=== PATIENT | female | born 1950 | race Caucasian/White ===

== ENCOUNTER → 2020-12-03 11:03 | Outpatient (CLI) | payer OTHER, SELFPAY ==
--- NOTE | ~2020-12-03 | MM_ITS ---
EXAMINATION: MM screening mary BI w enrique HISTORY: Screening TECHNIQUE: Craniocaudal and mediolateral oblique 3-D tomosynthesis images were obtained and synthetic 2-D images were generated. CAD analysis was submitted and interpreted. COMPARISON: Comparison to multiple prior studies sequentially, with oldest reviewed study dated 04/16. BREAST PARENCHYMAL COMPOSITION: The breasts are heterogenously dense, which may obscure small masses FINDINGS: There is no evidence of suspicious mass, calcification, or architectural distortion to sugg est malignancy in either breast. There has been no suspicious interval change. IMPRESSION: 1. No mammographic evidence of malignancy. 2. Recommend routine screening mammography in one year. BI-RADS Category 1: Negative Reviewed, dictated and finalized at location A.
== END ==
PROVIDERS: PCP Family Medicine; Visit Provider Obstetrics & Gynecology Gynecology
DX: Z12.31 Encounter for screening mammogram for malignant neoplasm of breast (principal)
CPT/HCPCS: 77063; 77067

== ENCOUNTER → 2022-03-12 11:18 | Outpatient (CLI) | payer OTHER, SELFPAY ==
--- NOTE | ~2022-03-12 | MM_ITS ---
EXAMINATION: MM screening [facility] BI w enrique HISTORY: Screening mammogram TECHNIQUE: Craniocaudal and mediolateral oblique 3-D tomosynthesis images were obtained and synthetic 2-D images were generated. CAD analysis was submitted and interpreted. COMPARISON: 12/03/2020, 07/19/2018, 07/22/2015 BREAST PARENCHYMAL COMPOSITION: The breasts are heterogeneously dense, which may obscure small masses . FINDINGS: No suspicious mass, calcification, or architectural distortion are identified in either artie ast to suggest malignancy. There has been no suspicious interval change. IMPRESSION: 1. No mammographic evidence of malignancy. 2. Recommend routine screening mammography in one year. BI-RADS Category 1: Negative Reviewed, dictated and finalized at location A.
== END ==
PROVIDERS: PCP Family Medicine; Visit Provider Obstetrics & Gynecology Gynecology
DX: Z12.31 Encounter for screening mammogram for malignant neoplasm of breast (principal)
CPT/HCPCS: 77063; 77067

== ENCOUNTER → 2022-12-15 09:15 | Outpatient (CLI) | payer OTHER, SELFPAY ==
--- NOTE | ~2022-12-15 | MMUS_ITS ---
EXAMINATION: MM diagnostic mary BI w enrique, US breast BI complete HISTORY: Left breast pain. TECHNIQUE: Full field and spot ML, MLO and CC 3-D tomosynthesis images of both breasts were performed and synthetic 2-D images were generated. CAD analysis was submitted and interpreted. High resolution complete bilateral breast ultrasound examination including all 4 quadrants and subareolar areas was performed. COMPARISON: 03/12/2022, 12/03/2020, 07/19/2018 bilateral screening mammogram examinations BREAST PARENCHYMAL COMPOSITION: The breasts are heterogeneously dense, which may obscure small masses . FINDINGS: MAMMOGRAPHIC FINDINGS: Approximately 4.7 x 6 mm possible mass is suggested in the mid to upper inner left breast (MLO Tomosy nthesis image 41/53; coned MLO Tomosynthesis image 35/56). There is fibroglandular asymmetry and heterogeneously dense stroma of the breast, which may obscure a dditional masses on either side. Bilateral complete breast ultrasound examination was performed. ULTRASOUND: Right breast: No suspicious mass or shadowing, cyst or other significant sonographic abnormality is noted in the ri ght breast. Left breast: 12:00 4 cm from nipple: Mildly irregular parallel hypoechoic 5.8 x 4.1 x 6.6 mm lesion. Portions of t he margins are not completely circumscribed. Due to the marginal irregularity and incomplete circumci trisha, ultrasound-guided biopsy is recommended. At 2:00 7 cm from the nipple there is a persistent ill-defined approximately 1.5 cm wide area of shad owing, with some prominent vascularity going to this area. Ultrasound-guided biopsy is recommended. 10:00 5 cm from nipple: There is an irregular hypoechoic 5.3 x 5.0 x 8.9 mm mass with some posterior shadowing. Ultrasound-guided biopsy is recommended. IMPRESSION: 1. Suspicious sonographic findings of left breast at 12:00 4 cm from nipple, 2:00 7 cm from nipple an d 10:00 5 cm from nipple 2. Ultrasound-guided biopsy of each of these 3 areas is recommended BI-RADS category 4, suspicious findings. Dr. Merino telephoned the report and ultrasound-guided biopsy recommendations on 12/15/2022 at 1037 hours to Cynthia, Pantograph I Engraver. Reviewed, dictated and finalized at location A. IMPRESSION: 1. Suspicious sonographic findings of left breast at 12:00 4 cm from nipple, 2: 00 7 cm from nipple and 10:00 5 cm from nipple 2. Ultrasound-guided biopsy of each of these 3 areas is recommended BI-RADS category 4, suspicious findings. Dr. Merino telephoned the report and ultrasound-guided biopsy recommendations on 12/15/2022 at 1037 hours to Timo Marie.
== END ==
PROVIDERS: PCP Family Medicine; Visit Provider Advanced Practice Midwife
DX: N64.4 Mastodynia (principal); R92.8 Other abnormal and inconclusive findings on diagnostic imaging of breast
CPT/HCPCS: 76641; 77062; 77066; G0279

== ENCOUNTER 2023-01-11 09:14 | Outpatient (CLI) | payer OTHER, SELFPAY ==
--- NOTE | ~2023-01-11 | MMUS_ITS ---
EXAMINATION: US breast biopsy LT w image, MM post biopsy invasive LT DATE: 01/11/2023 10:47 (accession [id number]), 01/11/2023 10:45 (accession [id number]) INDICATION: Indeterminate masses at the 12:00 and 10:00 locations of the left breast on screening [facility] mogram. Ultrasound-guided core biopsy is requested to evaluate for malignancy. TECHNIQUE AND FINDINGS: The risks and potential benefits of the procedure were discussed with the patient including bleeding and infection. A time out was performed. An area recommended for biopsy at the 2:00 location appears mammographically stable and is most consistent with dense fibroglandular tissue. The skin of the left breast was prepared and draped in usual sterile fashion. 1% lidocaine was used for superficial anest hesia. 1% lidocaine with epinephrine was used for deep anesthesia. A vacuum-assisted biopsy needle was advanced through to the outer edge of the 10:00 mass from a later al approach utilizing sonographic guidance. A total of five tissue core samples were obtained through the lesion. A tissue marker clip was then placed at the biopsy site. Hemostasis was achieved. A vacuum-assisted biopsy needle was advanced through to the outer edge of the 12:00 mass from a later al approach utilizing sonographic guidance. A total of four tissue core samples were obtained through the lesion. A tissue marker clip was then placed at the biopsy site. Hemostasis was achieved. A ster ile bandage was applied. The patient tolerated procedure well and there was no evidence of immediate complication. The patient was given verbal instructions to return to the Emergency Department in the event of severe breast pa in or rapid breast enlargement. A two view left breast mammogram was obtained to document tissue ankur er clip placement. IMPRESSION: 1. Successful ultrasound-guided vacuum-assisted biopsy of left breast masses with tissue marker place ment. Reviewed, dictated and finalized at location A. IMPRESSION: 1. Successful ultrasound-guided vacuum-assisted biopsy of left breast masses wi th tissue marker placement.
== END 2023-01-11 09:15 | disposition home or self-care (01) ==
PROVIDERS: PCP Family Medicine; Visit Provider Physician Assistant Surgical
DX: R92.8 Other abnormal and inconclusive findings on diagnostic imaging of breast (principal); N63.20 Unspecified lump in the left breast, unspecified quadrant
CPT/HCPCS: 19083; 88305; A4648

== ENCOUNTER 2024-07-06 12:40 | Outpatient (CLI) | payer MEDICARE, SELFPAY ==
--- NOTE | ~2024-07-06 | MM_ITS ---
EXAMINATION: MM screening mary BI w enrique HISTORY: Screening TECHNIQUE: Craniocaudal and mediolateral oblique 3-D tomosynthesis images were obtained and synthetic 2-D images were generated. CAD analysis was submitted and interpreted. COMPARISON: Comparison to multiple prior studies sequentially, with oldest reviewed study dated 11/2015. BREAST PARENCHYMAL COMPOSITION: Dense: The breasts are extremely dense, which lowers the sensitivity of mammography. FINDINGS: There is no evidence of suspicious mass, calcification, or architectural distortion to sugg est malignancy in either breast. There has been no suspicious interval change. IMPRESSION: 1. No mammographic evidence of malignancy. 2. Recommend routine screening mammography in one year. BI-RADS Category 1: Negative Reviewed, dictated and finalized at location B. NERATOR ATTENDANT
--- NOTE | ~2024-07-06 | DEXA_ITS ---
Bone Density Report Name: MARCELLA ALMENDAREZ Age: 73 Sex: Female Ethnicity: White Date of : 1950 Indication: postmenopausal; screening for osteoporosis; height loss; prior fracture; Referring Provider: Rola Fuentes Study: Bone densitometry was performed. Exam Date: July 06, 2024 Accession number: [id number] Bone Density: Region BMD T-score Z-score Classification AP Spine(L1-L4) 0.792 -2.3 0.0 Osteopenia Femoral Neck (Left) 0.755 -0.8 1.1 Normal Total Hip (Left) 0.939 0.0 1.6 Normal Femoral Neck (Right) 0.778 -0.6 1.3 Normal Total Hip (Right) 0.871 -0.6 1.1 Normal Femoral Neck Mean 0.767 -0.7 1.2 Normal Total Hip Mean 0.905 -0.3 1.4 Normal World Health Organization criteria for BMD impression classify patients as: Normal (T-score at or above -1.0), Osteopenia (T-score between -1.0 and -2.5), or Osteoporosis (T-score at or below -2.5). 10-year Fracture Risk: FRAX not reported because: Prior hip or vertebral fracture Clinical Information Provided by Patient: Have had a previous hip or vertebral fracture Has had a low trauma fracture Has used the following medications: Vitamin D Patient maximum height was 63 Menopause Age: 46 No regular weight bearing exercise Onset of menses at age 13 Number of children 2 Impression: The patient has low bone mass, based on the Total Spine T-score. The patient has risk factors, including: previous fracture. Discussion: INCREASED RISK OF FRACTURE DUE TO HISTORY OF FRACTURE. The patient's previous fracture puts the patient at high risk of a future fracture. In untreated patients, the risk of osteoporotic fracture increases approximately two-fold for each 1.0 SD decrease in T-score. Low bone density is not the only risk factor for fracture; also consider factors such as patient's age, frailty or poor health, risk of falling, risk of injury, previous osteoporotic fracture, family history of osteoporosis, cigarette smoking, low body weight, etc. Not everyone with a low trauma fracture has osteoporosis; osteomalacia and other metabolic bone disorders should also be considered. Patients who have osteoporosis should be evaluated for specific diseases and conditions (secondary causes) that may cause or contribute to bone loss and fracture risk. National Osteoporosis Foundation (NOF) recommends pharmacologic intervention for patients with a prior hip or vertebral fracture regardless of BMD T-score. The patient should follow a healthful lifestyle (good nutrition with adequate calcium and vitamin D, and appropriate weight-bearing exercise). Follow-Up: Consider a repeat BMD and Vertebral Fracture Assessment (VFA) exam in 2 years or sooner if medically necessary, to reassess this patient's status. Reported by: JONAH on 07/06/2024 1:09:00 PM. Reviewed, dictated and finalized at location A.
--- OUTSIDE RECORDS SUMMARY | 2024-07-06 12:47 | XMS_ITS | Clinical Summary ---
Author Organization [facility] Address [address] [place] [address] Phone Care Team Providers Care Training Associate Name Role Phone Unavailable Primary Care Provider Unavailabl e Social History Tobacco Use Types Packs/Day Years Used Date Smoking Tobacco: Never Assessed Comments Unknown Sex and Gender Information Value Date Recorded Sex Assigned at Not on file Legal Sex Female 1:12 PM LICENSE EXAMINER Gender Identity Not on file Sexual Orientation Not on file Plan of Treatment Health Maintenance Due Date Last Done Comments DEXA Bone Density 1950 Hepatitis C Virus (HCV) Screening 1950 Colonoscopy 07/15/1996 Colorectal Cancer Screening 07/15/1996 Cologuard 07/15/2001 Immunochemical Fecal Occult Blood 07/15/2001 Mammogram 07/15/2001 Zoster Immunization (2 of 2) 10/27/2018 09/01/2018 Pneumococcal Immunization (50+ years) (2 of 2 - PPSV23) 01/15/2021 01/16/2020 Influenza Immunization (#1) 2024 06/07/2013 SARS-COV-2 Immunization ( season) 2024 12/08/2021, 03/24/2021, 08/05/2020, Additional history exists Respiratory Syncytial Virus (RSV) Immunization (Adult) (1 - 1-dose 75+ series) 07/15/2026 DTaP/Tdap/Td Immunization Discontinued 12/08/2015 TdaP Immunization Completed 12/08/2015 Pneumococcal Immunization Combined Discontinued 01/16/2020 Hepatitis B Immunization Aged Out No longer eligible based on patient's age to complete this topic Meningococcal Immunization (ACWY) Aged Out No longer eligible based on patient's age to complete this topic Rotavirus Immunization Aged Out No lo nger eligible based on patient's age to complete this topic
--- OUTSIDE RECORDS SUMMARY | 2024-07-06 12:47 | XMS_ITS | Clinical Summary ---
Author Organization [facility] Address [address] [place] [id number] Care Team Providers Care Double End Tenoner Operator Name Role Phone Unavailable Primary Care Provider Unavailabl e Social History Tobacco Use Types Packs/Day Years Used Date Smoking Tobacco: Never Assessed Comments Unknown Sex and Gender Information Value Date Recorded Sex Assigned at Not on file Legal Sex Female 6:23 PM CDT Gender Identity Not on file Sexual Orientation Not on file Last Filed Vital Signs Vital Sign Reading Time Taken Comments Blood Pressure 110/78 12/31/2016 2:07 PM CDT Pulse 77 12/31/2016 2:07 PM CDT Temperature - - Respiratory Rate - - Oxygen Saturation - - Inhaled Oxygen Concentration - - Weight 57.2 kg (126 lb) 12/31/2016 2:07 PM CDT Height 160 cm (5' 3 ) 12/31/2016 2:07 PM CDT Body Mass Index 22.32 12/31/2016 2:07 PM CDT Plan of Treatment Health Maintenance Due Date Last Done Comments Colorectal Cancer Screening Colonoscopy (10 Years) 1950 Hepatitis C 07/15/1969 DTaP, Tdap and Td Vaccines ( 1 - Tdap) 07/15/1970 Mammogram Screening 1991 Zoster Vaccines (1 of 2) 07/15/2001 Dexa Scan (General) 07/15/2016 Pneumococcal Vaccine: 65+ Ye ars (1 of 1 - PCV) 07/15/2016 COVID-19 Vaccine ( - 2023-2 5 season) 2024 Influenza Adult (#1) 2024 RSV Immunization or 60+ Years (1 - 1-dose 75+ series) 07/15/2026 Meningococcal B Vaccine Aged Out No l onger eligible based on patient's age to complete this topic Meningococcal Vaccine Aged Out No analisa ric eligible based on patient's age to complete this topic RSV Immunizations Under 20 Months Aged Out No longer eligible based on patient's age to complete this topic
--- OUTSIDE RECORDS SUMMARY | 2024-07-06 12:47 | XMS_ITS | Clinical Summary ---
Author Organization [facility] Address [address] [place] [address] Care Team Providers Care Vacuum Tank Tender Name Role Phone Mike Briceno MD Primary Care Provider Source Comments [facility],non-owned Affiliates and Associated Physician Practices is amultiple site organization consisting of ambulatory clinics and hospital sitesin [place], [place], [place] and [place]. This disclosure is being madepursuant to the Care Everywhere program and may not contain all information available regarding this patient. Last updated 18.[facility] Allergies No known active allergies Medications * Be aware that medications may not be up to date on this document. Alwaysverify current medications with the patient. Medication Sig Dispensed Refills Start Date End Date Status Cholecalciferol 25 MCG (1000 UT) Take 2,000 Units by mouth once daily Active Active Problems Problem Noted Date Diagnosed Date Closed Colles' fracture 11/04/2020 Fracture of forearm 11/04/2020 Neck pain 11/04/2020 Closed fracture of middle phalanx of finger 10/16 Elevated blood pressure reading 08/19/2018 Overview (11/04/2020): Last Assessment & Plan: Will have patient monitor BP at home and add medication as needed - Will check lipid panel, CMP for primary risk stratification Abnormal stress electrocardiogram test using christy admill 08/18/2018 Overview (11/04/2020): August 2007 positive the ECG evidence but was negative perfusion. Excellent exercise capacity at 13 METS. Short ID with increased heart rate Dizziness 08/13/2018 Overview (11/04/2020): Last Assessment & Plan: Seem to not be related to palpitations - Will have patient monitor BP at home - Event monitor as above Mild mitral regurgitation 08/13/2018 Overview (11/04/2020): Noted echo May 2016.. Eccentric jet perhaps underestimated Last Assessment & Plan: Noted on TTE from 05/2016 - Continue to monitor - Recheck TTE in 5 years or sooner if clinically indicated Allergic rhinitis 05/19/2018 Lumbago 05/19/2018 Vitamin D deficiency 05/19/2018 Palpitations 04/29/2016 Overview (11/04/2020): Echo May 20, 2016 mild concentric LVH. Normal systolic and diastolic function. Mild mitral regurgitation w which is eccentric. Gives history of heart rate in the 200's Last Assessment & Plan: TTE from 05/20/16 with normal LVH function and mild MR. Has symptoms daily but they are mild - Will check 30 day even monitor - Can continue to hold beta maira unless arrhythmia noted during monitoring - Check TSH and Magnesium Cervical radiculopathy 08/28/2014 Compression fracture of cervical spine 4 Immunizations Name Administration Dates Next Due FLU VACCINE QUAD IIV4 SPLIT 0.25 ML IM 4 Pneumococcal Pcv13 Conj 01/16/2020 TDAP (7yrs+) 12/08/2015 Zoster Hzv Vacc Recombinant Inj Im 12/14/2018, Family History Medical History Relation Name Comments CVA Father Hyperlipidemia Mother Parkinson's Disease Mother Relation Name Status Comments Father Mother Social History Tobacco Use Types Packs/Day Years Used Date Smoking Tobacco: Never Smokeless Tobacco: Never Alcohol Use Standard Drinks/Week Comments Yes 0 (1 standard drink = 0.6 oz pur e alcohol) AUDIT-C Answer Date Recorded Frequency of Alcohol Consumption Not on file 06/27/2020 Q2: How many drinks containi ng alcohol do you have on a typical day when you are drinking? 3 or 4 06/27/2020 Q3: How often do you have si x or more drinks on one occasion? Weekly 06/27/2020 Sex and Gender Information Value Date Recorded Sex Assigned at Not on file Gender Identity Not on file Sexual Orientation Not on file Last Filed Vital Signs Vital Sign Reading Time Taken Comments Blood Pressure 122/73 06/27/2020 8:05 AM SEAFOOD PROCESSOR Pulse 75 06/27/2020 8:05 AM SEAFOOD PROCESSOR Temperature 36.6 C (97.9 F) 06/27/2020 8:05 AM SEAFOOD PROCESSOR Respiratory Rate - - Oxygen Saturation - - Inhaled Oxygen Concentration - - Weight 57.6 kg (127 lb) 06/27/2020 8:05 AM SEAFOOD PROCESSOR Height 160 cm (5' 3 ) 06/27/2020 8:05 AM SEAFOOD PROCESSOR Body Mass Index 22.5 06/27/2020 8:05 AM SEAFOOD PROCESSOR Plan of Treatment Health Maintenance Due Date Last Done Comments BONE DENSITY TESTING 1950 COLOGUARD (AGES 45-75) - COL ON CA SCREENING 1950 COLON MONITORING 1950 COLONOSCOPY - COLON CA SCREENING 1950 CT COLONOGRAPHY - COLON CA SCREENING 1950 Colorectal Cancer Screening 1950 FIT - COLON CA SCREENING 1950 FLEX SIG - COLON CA SCREENING 1950 LIPID TESTING 1950 MAMMOGRAM 1950 HEPATITIS C SCREENING 07/11/1969 PNEUMOCOCCAL VACCINE 50+ (2 of 2 - PPSV23) 01/15/2021 01/16/2020 COVID-19 VACCINE ( - 2023-2 5 season) 2024 INFLUENZA VACCINE (#1) 2024 06/07/2013 DEPRESSION SCREENING 05/17/2024 MEDICARE AWV CALENDAR YEAR 2024 DTAP/TDAP/TD VACCINES (2 - T d or Tdap) 12/07/2025 12/08/2015 Respiratory Syncytial Virus (RSV) Vaccine Pt: or over 60 yrs (1 - 1-dose 75+ series) 07/15/2026 ZOSTER VACCINE Completed 12/14/2018, 09/01/2018 HEPATITIS B VACCINE Aged Out No longe r eligible based on patient's age to complete this topic HIB VACCINE Aged Out No longer eligi ble based on patient's age to complete this topic HPV VACCINE Aged Out No longer eligi ble based on patient's age to complete this topic MENINGOCOCCAL (Group B) VACCINE Aged Out No longer eligible b ased on patient's age to complete this topic MENINGOCOCCAL VACCINE Aged Out No analisa ric eligible based on patient's age to complete this topic Care Teams Vacuum Tank Tender Relationship Specialty Start Date End Date Mike Briceno MD PCP - General Family Medicine 06/27/20
--- OUTSIDE RECORDS SUMMARY | 2024-07-06 12:47 | XMS_ITS | Patient Health Summary ---
Author Organization [facility] Address [address] [place] [address] Care Team Providers Care Sterile Process Coordinator Name Role Phone Mike Briceno MD Primary Care Provider Note from [facility],non-owned Affiliates and Associated Physician Practices is amultiple site organization consisting of ambulatory clinics and hospital sitesin [place], [place], [place] and [place]. This disclosure is being madepursuant to the Care Everywhere program and may not contain all information available regarding this patient. Last updated 18.[facility] Allergies No known active allergies Medications * Be aware that medications may not be up to date on this document. Alwaysverify current medications with the patient. * Cholecalciferol 25 MCG (1000 UT) Take 2,000 Units by mouth once daily Active Problems Problem Noted Date Diagnosed Date Closed Colles' fracture 11/04/2020 Fracture of forearm 11/04/2020 Neck pain 11/04/2020 Closed fracture of middle phalanx of finger 10/16 Elevated blood pressure reading 08/19/2018 Abnormal stress electrocardiogram test using christy admill 08/18/2018 Dizziness 08/13/2018 Mild mitral regurgitation 08/13/2018 Allergic rhinitis 05/19/2018 Lumbago 05/19/2018 Vitamin D deficiency 05/19/2018 Palpitations 04/29/2016 Cervical radiculopathy 08/28/2014 Compression fracture of cervical spine 4 Immunizations * FLU VACCINE QUAD IIV4 SPLIT 0.25 ML IM(Given 06/07/2013) * Pneumococcal Pcv13 Conj(Given 01/16/2020) * TDAP (7yrs+)(Given 12/08/2015) * Zoster Hzv Vacc Recombinant Inj Im(Given 12/14/2018, 09/01/2018) Social History Tobacco Use Types Packs/Day Years [...] Comments Blood Pressure 122/73 06/27/2020 8:05 AM LEASING SALES CONSULTANT Pulse 75 06/27/2020 8:05 AM LEASING SALES CONSULTANT Temperature 36.6 C (97.9 F) 06/27/2020 8:05 AM LEASING SALES CONSULTANT Respiratory Rate - - Oxygen Saturation - - Inhaled Oxygen Concentration - - Weight 57.6 kg (127 lb) 06/27/2020 8:05 AM LEASING SALES CONSULTANT Height 160 cm (5' 3 ) 06/27/2020 8:05 AM LEASING SALES CONSULTANT Body Mass Index 22.5 06/27/2020 8:05 AM LEASING SALES CONSULTANT Procedures * DERMATOPATHOLOGY(Performed 09/30/2022) * DERMATOPATHOLOGY(Performed 07/23/2017) * DERMATOPATHOLOGY(Performed 11/20/2015) * DERMATOPATHOLOGY(Performed 09/09/2015) Results * DERMATOPATHOLOGY (09/30/2022 8:30 AM CDT) Only the most recent of4 resultswithin the time period is included. Case Report Dermatopathology Report Case: [id number] Authorizing Provider: Crystal Momin MD Collected: 09/30/2022 08:30 AM Ordering Location: [facility] DermPath Lab Received: 10/01/2022 06:08 AM Pathologist: Sheridan Pardo MD Specimens: A) - Skin, left sideburn B) - Skin, right restoration 3 4:41 PM T DERMATOPATHOLOGY LABORATORY Final Diagnosis Specimen A. SKIN, left sideburn: SEBORRHEIC KERATOSIS, IRRITATED; SUPERFICIAL PORTIONS ONLY (L82.0) Specimen B. SKIN, right restoration: SQUAMOUS CELL CARCINOMA IN SITU (TEJADA'S DISEASE) (D04.39) 3 4:41 PM T DERMATOPATHOLOGY LABORATORY Clinical History A: AK VS SCC VS OTHER ;GROWING, IRRITATED, NON-HEALING B: SK VS SCC VS OTHER; GROWING, IRRITATED, NON-HEALING 3 4:41 PM CDT DERMATOPATHOLOGY LABORATORY Gross Description Specimen A: Received is one formalin filled container labeled with the patient's name and designated left sideburn. The specimen consists of a shave biopsy measuring 5x4x1 mm. Jar 0. Specimen B: Received is one formalin filled container labeled with the patient's name and designated right restoration. The specimen consists of a shave biopsy measuring 6x5x1 mm. Jar 0. 3 4:41 PM T DERMATOPATHOLOGY LABORATORY Microscopic Description Specimen A. SKIN, left sideburn: There is acanthosis consisting of fairly uniform squamous cells with eosinophilic cytoplasm and squamous eddies. Specimen B. SKIN, right restoration: The epidermis shows parakeratosis, full thickness disorderly maturation of keratinocytes, mitoses at different levels, and dyskeratotic cells. 3 4:41 PM [facility] DERMATOPATHOLOGY LABORATORY Disclaimer An external and internal positive and negative controls are appropriate for the histochemical, immunohistochemical and immunofluorescence stain(s) in this case (if any), except where stated explicitly. The performance characteristics of the stain(s) cited in this report were developed and its performance characteristic determined by the Dermatopathology Laboratory at [facility], directed by Dr. Zak Pardo. These tests need not be, and therefore are not, approved by the [place] Food and Drug Administration. The tests are used for clinical purposes. Billing Codes Specimen Charges Stain Charges 04008 07335 1 1 3 4:41 PM CDT DERMATOPATHOLOGY LABORATORY Embedded Images 3 4:41 PM CDT DERMATOPATHOLOGY LABORATORY Pathology/Cytology TISSUE SPECIMEN FROM SKIN / Unknown 09/30/2022 8:30 AM CDT 10/01/2022 6:08 AM CDT Miscellaneous samples (specimen) TISSUE SPECIMEN FROM SKIN / Unknown 09/30/2022 8:30 AM CDT 10/01/2022 6:08 AM CDT Crystal Momin MD LAB - PATHOLOGY/CYT OLOGY ORDERABLES DERMATOPATHOLOGY LABORATORY [facility] - Department of Dermatology [facility] Specialized Medicine [address] [place] [address], [address] [phone] Care Teams Sterile Process Coordinator Relationship Specialty Start Date End Date Mike Briceno MD PCP - General Family Medicine 06/27/20
--- OUTSIDE RECORDS SUMMARY | 2024-07-06 12:47 | XMS_ITS | Encounter Summary ---
Author Organization [facility] Address [address] [place] [address] Care Team Providers Care Roll Line Operator Name Role Phone Gavin Sanchez MD Primary Care Provider [phone]- [phone] Mike Briceno MD Unavailable [phone]- [phone] Reason for Visit * Diagnostic Imaging (Routine) - Closed Specialty Diagnoses / Procedures Referred By Contac t Referred To Contact Procedures Breast Imaging Screening Outside Reference Mike Briceno MD [address] [place] [address] Phone: tel: fax: Referral ID Status Reason Start Date Expiration Date Visits Re quested Visits Authorized [id number] Closed 12/18/2022 01/17/2024 1 1 Encounter Details Date Type Department Care Team (Late st Contact Info) Description 07/19/2018 Hospital Encounter [facility] [address] [place] [id number] Social History Tobacco Use Types Packs/Day Years Used Date Smoking Tobacco: Never Smokeless Tobacco: Never Alcohol Use Standard Drinks/Week Comments Yes 4 (1 standard drink = 0.6 oz pur e alcohol) AUDIT-C Answer Date Recorded Q1: How often do you have a drink containing alc ohol? 2-3 times a week 04/24/2024 Q2: How many drinks containi ng alcohol do you have on a typical day when you are drinking? 1 or 2 04/24/2024 Q3: How often do you have si x or more drinks on one occasion? Never 04/24/2024 PHQ-2 Answer Date Recorded PHQ-2 Total Score (If total score is 3 or more points, staff should administer the PHQ-9) 0 04/24/2024 Personal Safety Answer Date Recorded Have you ever been in or are you currently in a harmful physical or emotional relationship or is someone making you feel afraid or unsafe? Denies 05/02/2024 Comments No Sex and Gender Information Value Date Recorded Sex Assigned at Not on file Legal Sex Female 11:20 AM [employer] Gender Identity Not on file Sexual Orientation Not on file COVID-19 Exposure Response Date Recorded In the last month, have you been in contact with someone who was confirmed or suspected to have Coronavirus / COVID-19? No / Unsure 08/09/2019 9:30 AM CDT documented as of this encounter Functional Status * Audit-C Score Answer Date of Assessment Author 3 04/24/2024 8:22 AM [employer] Chantel Rooney MA * Question Answer Date of Assessment Author Q1: How often do you have a drink containing alcohol? 2-3 times a week 04/24/2024 8:22 AM Yamini Marcial M A Q2: How many drinks containing alcohol do you have on a typical day when you are drinking? 1 or 2 04/24/2024 8:22 AM Yamini Marcial M A Q3: How often do you have six or more drinks on one occasion? Never 04/24/2024 8:22 AM Yamini Marcial M A documented as of this encounter Plan of Treatment Not on file documented as of this encounter Procedures Procedure Name Priority Date/Time Associated Diagnosis Comments BREAST IMAGING MG SCREENING OUTSIDE REFERENCE Routine 07/19/2018 12:00 AM [employer] documented in this encounter Results * Breast Imaging Screening Outside Reference (07/19/2018 12:00 AM [employer]) Impressions RAD_M[facility]MO[facility] - 12/18/2022 10:50 AM CDT These images are for Reference purposes only and have not been reviewed by [facility] Radiology. There will be no report generated by a [facility] Radiologist. Narrative RAD_MAMMO_[facility] - 12/18/2022 10:50 AM CDT EXAMINATION: Images For Reference Purposes Only us Mike Briceno MD IMG MAMMO PROCEDURES Final Result [facility] documented in this encounter Visit Diagnoses Not on filedocumented in this encounter Additional Health Concerns Infection Onset Date Last Indicated Resolved Time COVID: Suspected 04/18/2022 04/18/2022 04/18/2022 2:45 PM [employer] documented as of this encounter Care Teams Roll Line Operator Relationship Specialty Start Date End Date Gavin Sanchez MD [address] [place] [address] PCP - General 04/29/16 08/18/18 Mike Briceno MD [address] [place] [address] PCP - Essence Attributed PCP 05/17/18 documented as of this encounter
--- OUTSIDE RECORDS SUMMARY | 2024-07-06 12:47 | XMS_ITS | Clinical Summary ---
Author Organization [facility] Address [facility] [place] [address] Care Team Providers Care Cosmetic Account Coordinator Name Role Phone Mike Briceno MD Primary Care Provid er Mike Briceno MD Unavailable [phone]- [phone] Allergies No known active allergies Medications cholecalciferol (VITAMIN D-3) 25 mcg (1,000 unit) tablet Take 2 tablets (2,000 Units total) by mouth daily Active meclizine (ANTIVERT) 25 mg tablet Take 1 tablet (25 mg total) by mouth 3 (three) times a day as needed for dizziness 30 tablet Active Additional Information Patient not taking.Reported on 06/27/2024 ondansetron ODT (ZOFRAN-ODT) 4 mg disintegrating tablet Take 1 tablet (4 mg total) by mouth every 8 (eight) hours as needed for nausea or vomiting 20 tablet Active Additional Information Patient not taking.Reported on 06/27/2024 atorvastatin (LIPITOR) 10 mg tabletIndications :Hyperlipidemia, unspecified hyperlipidemia type TAKE 1 TABLET BY MOUTH EVERY DAY 90 tablet 3 025 Active metoprolol XL (TOPROL-XL) 25 mg extended release tablet TAKE 1/2 TABLET BY MOUTH EVERY DAY 45 tablet 3 025 Active atorvastatin (LIPITOR) 10 mg tabletIndications :Hyperlipidemia, unspecified hyperlipidemia type Take 1 tablet (10 mg total) by mouth daily 90 tablet 3 024 2024 Discontinued metoprolol XL (TOPROL-XL) 25 mg extended release tablet Take 0.5 tablets (12.5 mg total) by mouth daily 45 tablet 3 024 2024 Discontinued Active Problems Problem Noted Date Diagnosed Date Tinnitus of both ears 06/27/2024 Sensorineural hearing loss (SNHL) of both ears 0 06/27/2024 HTN (hypertension), benign 01/30/2024 Elevated blood pressure reading 08/19/2018 Assessment & Plan (08/19/2018 8:59 AM CDT): Will have patient monitor BP at home and add medication as needed - Will check lipid panel, CMP for primary risk stratification Abnormal stress electrocardiogram test using christy admill 08/18/2018 Overview (08/18/2018): August 2007 positive the ECG evidence but was negative perfusion. Excellent exercise capacity at 13 METS. Short ME with increased heart rate Vertigo 08/13/2018 Assessment & Plan (01/05/2024 10:59 AM CDT): H/o vertigo with new onset dizzy episodes in the past 5 days. COVID about 3 weeks ago, symptoms resolved. Mild sinus inflammation and small amount of fluid behind left TM - could be contributing to dizziness. No red flag symptoms - discussed more concerning symptoms and when to seek emergency care including stroke like symptoms, severe headache, visual changes/loss, etc. Patient still has medrol dose pack at home that she did not take. Advised to try now for anti-inflammatory effect, continue nasal spray as well. F/u if still not improving in the next few days or if more concerning symptoms arise - would consider imaging of brain then. Pt voiced understanding. Assessment & Plan (08/19/2018 8:59 AM CDT): Seem to not be related to palpitations - Will have patient monitor BP at home - Event monitor as above Mild mitral regurgitation 08/13/2018 Overview (08/13/2018): Noted echo May 2016.. Eccentric jet perhaps underestimated Assessment & Plan (08/19/2018 8:58 AM CDT): Noted on TTE from 05/2016 - Continue to monitor - Recheck TTE in 5 years or sooner if clinically indicated Allergic rhinitis 05/19/2018 Lumbago 05/19/2018 Vitamin D deficiency 05/19/2018 Palpitations 04/29/2016 Overview (08/13/2018): Echo May 20, 2016 mild concentric LVH. Normal systolic and diastolic function. Mild mitral regurgitation w which is eccentric. Gives history of heart rate in the 200's Assessment & Plan (08/19/2018 8:59 AM CDT): TTE from 05/20/16 with normal LVH function and mild MR. Has symptoms daily but they are mild - Will check 30 day even monitor - Can continue to hold beta maira unless arrhythmia noted during monitoring - Check TSH and Magnesium Cervical radiculopathy 08/28/2014 Compression fracture of cervical spine ([facility]/HCC) 08/28/2014 Fracture of cervical vertebra ([facility]) 05/16/20 14 Encounters Date Type Department Care Team Description 06/27/2024 9:00 AM PROTECTION OFFICER Office Visit [facility] Otolaryngology [address] [place] [phone] Roula Durbin NP Vertigo (Primary Dx); Sensorineural hearing loss (SNHL) of both ears; Tinnitus of both ears 06/27/2024 8:30 AM PROTECTION OFFICER Procedure visit [facility] Otolaryngology [address] [place] [phone] Graciela Morelos Dizziness and giddiness (Primary Dx); Tinnitus of both ears 06/06/2024 Telephone [facility] Family Medicine [address] [address] Mike Briceno MD Recommendation Request 05/16/2024 7:36 AM PROTECTION OFFICER - 05/16/2024 11:59 PM PROTECTION OFFICER Hospital Encounter [facility] Vascular Lab [facility] [place] [address] Dizziness Discharge Disposition: Discharge to home or self care 05/05/2024 10:00 AM PROTECTION OFFICER Office Visit [facility] [address] [address] Mike Briceno MD Dizziness (Primary Dx) 05/03/2024 [facility] Outreach [facility] Care Organization [address] [place] [address] Katt Alonso MA 05/02/2024 2:39 PM PROTECTION OFFICER - 05/02/2024 5:38 PM PROTECTION OFFICER Emergency [facility] Emergency Department [address] [place] [address] Vertigo (Primary Dx) Discharge Disposition: Discharge to home or self care 05/02/2024 11:15 AM PROTECTION OFFICER Office Visit [facility] Care at [address] [phone] Lori Bartlett PA Dizziness (Primary Dx) 05/02/2024 Nurse Triage [address] [address] Mike Briceno MD 04/24/2024 8:00 AM PROTECTION OFFICER Office Visit [address] [phone] Mike Briceno MD Screening mammogram for breast cancer (Primary Dx); Screening for osteoporosis; Menopause from Last 3 Months Immunizations Immunization Administration Dates Next Due Influenza, Quadrivalent, Spl it, Intramuscular 06/07/2013 Influenza, Unspecified 04/24/2024(Deferr ed: Patient Refused),05/03/2023(Deferred: Patient Refused),02/14/2023(Deferred: Patient Refused),02/14/2022(Deferred: Patient Refused),10/16/2021(Deferred: Patient Refused),02/14/2021(Deferred: Patient Refused),02/14/2021(Deferred: Patient Refused),02/23/2020(Deferred: Patient Refused),02/15/2020(Deferred: Patient Refused) Moderna SARS-CoV-2 Monovalen t Vaccination (12+ YRS) 12/08/2021,03/24/2021,08/05/2020,07/04 Pneumococcal Conjugate PCV 13 01/16/2020 Pneumococcal Conjugate Pcv20 11/05/2021 Tdap 12/08/2015 ZOSTER Recombinant 12/14/2018,09/01/2018 Surgical History Surgery Date Site/Laterality Comments ABLATION Medical History Medical History Date Comments Headache Lumbago Vitamin D deficiency Allergic rhinitis Dizziness Tinnitus Family History Medical History Relation Name Comments Other Brother 2 Alive and well; Stroke Father Delio Stroke; Other Mother Alive and well; Parkinsonism Mother Parkinson's dis ease; Other Sister 2 Alive and well; Relation Name Status Comments Brother 1 Alive Brother 2 Father Delio (Age 89) Mother Alive Sister 1 Alive Sister 2 Social History Tobacco Use Types Packs/Day Years Used Date Smoking Tobacco: Never Smokeless Tobacco: Never Tobacco Cessation:Counseling Given: Not Answered Alcohol Use Standard Drinks/Week Comments Yes 4 [...] on file Legal Sex Female 11:20 AM PROTECTION OFFICER Gender Identity Not on file Sexual Orientation Not on file Obstetrics History Last Filed Vital Signs Vital Sign Reading Time Taken Comments Blood Pressure 132/80 05/05/2024 10:04 AM PROTECTION OFFICER Pulse 74 05/05/2024 10:04 AM PROTECTION OFFICER Temperature 36.7 C (98.1 F) 05/05/2024 10:04 AM PROTECTION OFFICER Respiratory Rate 18 06/27/2024 9:12 AM PROTECTION OFFICER Oxygen Saturation 99% 05/05/2024 10:04 AM PROTECTION OFFICER Inhaled Oxygen Concentration - - Weight 57.2 kg (126 lb) 06/27/2024 9:12 AM PROTECTION OFFICER Height 160 cm (5' 3 ) 06/27/2024 9:12 AM PROTECTION OFFICER Body Mass Index 22.32 06/27/2024 9:12 AM PROTECTION OFFICER Plan of Treatment Health Maintenance Due Date Last Done Comments Hepatitis C Screening 1950 Hepatitis B Screening 07/15/1969 Osteoporosis Screening-Bone Density Scan 03/20/2021 03/20/2019, 03/20/2019 Breast Cancer Screening-Mammogram 12/16/2023 12/15/2022, 03/12/2022, 12/03/2020, Additional history exists Covid-19 Vaccine (2023-06 5 season) 2024 05/22/2022, 12/08/2021, 03/24/2021, Additional history exists Influenza Vaccine (#1) 2024 06/07/2013 Colon Cancer Screening-DNA Stool 09/08/2024 09/09/19, 01/23/2005 Depression Screening 04/24/2025 04/24/2024, 04/24/2024, 01/05/2024, Additional history exists Fall Risk Assessment 04/24/2025 04/24/2024, 05/03/2023, 04/30/2022, Additional history exists Well Visit 65+ 04/24/2025 04/24/2024, 04/16, 05/03/2023, Additional history exists DTaP/Tdap/Td Vaccine (2 - Td or Tdap) 12/07/2025 12/08/2015 Colon Cancer Screening-CT Colonography Discontinued 01/23/2005 Colon Cancer Screening-Colonoscopy Discontinued 01/23/2005 Colon Cancer Screening-Sigmoidoscopy Discontinued 01/23/2005 Zoster Vaccine Completed 12/14/2018, 09/01/2018 Colon Cancer Screening-FIT Discontinued 09/08/2021, Pneumococcal vaccine 65+ Completed 11/05/2021, 05/2019 Procedures Procedure Name Priority Date/Time Associated Diagnosis Comments US CAROTIDS DUPLEX BILATERAL Schedule Routine, Read Routine (OP Routine) 05/16/2024 8:33 AM PROTECTION OFFICER Dizziness TROPONIN T HIGH-SENSITIVITY 2-HOUR Timed 05/02/2024 3:10 PM PROTECTION OFFICER ECG 12-LEAD STAT 05/02/2024 3:03 PM PROTECTION OFFICER TROPONIN T HIGH-SENSITIVITY SERIES (BASELINE, 2HR, 4HR, 6HR) STAT 05/02/2024 1:11 PM PROTECTION OFFICER EGFR STAT 05/02/2024 1:11 PM PROTECTION OFFICER DIFFERENTIAL AUTO STAT 05/02/2024 1:1 1 PM PROTECTION OFFICER LIPASE STAT 05/02/2024 1:11 PM PROTECTION OFFICER COMPREHENSIVE METABOLIC PANEL STAT 05/02/2024 1:11 PM PROTECTION OFFICER CBC WITH AUTO DIFFERENTIAL STAT 05/02/2024 1:11 PM PROTECTION OFFICER URINALYSIS AND REFLEX TO MICROSCOPIC AND CULTURE STAT 05/02/2024 1:11 PM PROTECTION OFFICER HM MAMMOGRAPHY Routine 12/15/2022 STOOL DNA COLOGUARD Routine 09/08/2021 DEXA AXIAL SKELETON BONE DENSITY 1 OR MORE SITES Schedule Routine, Read Routine (OP Routine) 03/20/2019 COLONOSCOPY Routine 01/23/2005 from Last 3 Months or Most Recently Relevant to Health Maintenance Results * Vl US Carotids (05/16/2024 8:33 AM PROTECTION OFFICER) Anatomical Region Laterality Modality Vascular Bilateral Ultrasound 05/16/2024 Narrative 05/19/2024 7:16 AM PROTECTION OFFICER APX Job ID: [id number] APX Document ID: [id number] Dictated date/time: [id number] BILATERAL CAROTID DUPLEX REASON FOR EXAM Dizziness. FINDINGS ON THE RIGHT The right CCA peak systolic velocity is 84 cm/sec. Right ICA velocities are 70, 83 and 120. ECA is 81. The right vertebral has antegrade flow. FINDINGS ON THE LEFT The left CCA peak systolic velocity is 81 cm/sec. Left ICA velocities are 52, 85 and 94. ECA is 59. The left vertebral has antegrade flow. INTERPRETATION No evidence of significant stenosis bilateral internal carotid arteries. Job ID/Internal Job ID: [id number] Mike Briceno MD IMG US PROCEDURES Fi nal Result * Troponin T high-sensitivity 2-hour (05/02/2024 3:10 PM PROTECTION OFFICER) [facility] Trop T hs 7 <=14 ng/L Comment: Interpretive Data For further hscTnT resources including the diagnostic algorithm and an aid in interpretation, copy and paste this link: https://nrl.testcatalog.org/show/hsTrop Current Interpretive Data last revised 2020. Testing performed by: [facility], [address] [place] [address]., [address] Trop T hs delta -1 ng/L [place] Comment:Testing performed by : [facility], [address] [place] [address]., [id number] Trop T hs interp Insignificant [place] Comment:Testing performed by : [address] [address] Blood 05/02/2024 3:10 PM PROTECTION OFFICER 05/02/2024 3:13 PM PROTECTION OFFICER Corey Nash DO LAB BLOOD ORDERABLES Final Result [facility] [address] [facility] Department [place] [address] * ECG 12 lead (05/02/2024 3:03 PM PROTECTION OFFICER) [facility] Ventricular Rate EKG/Min 77 BPM [facility] Atrial Rate [address] [facility] ME-Interval (MSEC) [address] [facility] QRS-Interval (MSEC) 90 ms [facility] QT-Interval (MSEC) 364 ms [facility] QTc [address] [facility] P Colliers [address] [facility] R Colliers [address] [facility] T Colliers [address] [facility] Diagnosis Normal sinus rhythm ST-changes When compared with ECG of 31-AUG-2007 07:57, ST-changes are now Confirmed by SULTAN COX M.D. ([id number]) on 05/02/2024 4:55:30 PM [facility] 05/02/2024 3:03 PM PROTECTION OFFICER 05/02/2024 4:55 PM PROTECTION OFFICER us Angelia PICKETT ECG ORDERABLES Final Result Performing Organization Address City/[facility]/ZIP Co de Phone Number [facility] scenios [facility] * Troponin T high-sensitivity series (baseline, 2hr, 4hr, 6hr) (05/02/2024 1:11 PM PROTECTION OFFICER) Trop T hs 8 <=14 ng/L Comment: Interpretive Data For further hscTnT resources including the diagnostic algorithm and an aid in interpretation, copy and paste this link: https://nrl.testcatalog.org/show/hsTrop Current Interpretive Data last revised 2020. Testing performed by: [facility], [address] [place] [address]., [address] Blood 05/02/2024 1:11 PM PROTECTION OFFICER 05/02/2024 1:46 PM PROTECTION OFFICER us Corey Nash DO LAB BLOOD ORDERABLES Edited Result - Final Performing Organization Address City/[facility]/ZIP Co de Phone Number [place] [address] [facility] Department [place] [address] * eGFR (05/02/2024 1:11 PM PROTECTION OFFICER) eGFR >90 >=60 mL/min/1. 73 m2 Comment: Interpretive Data Reference Interval Normal >/= 90 mL/min/1.73m2 Mildly decreased* 60 - 89 mL/min/1.73m2 Mildly to moderately decreased 45 - 59 mL/min/1.73m2 Moderately to severely decreased 30 - 44 mL/min/1.73m2 Severely decreased 15 - 29 mL/min/1.73m2 Kidney Failure < 15 mL/min/1.73m2 *Relative to young adult level Estimated glomerular filtration rate is determined by the 2020 CKD-EPI equation recommended by the National Kidney Foundation (A Unifying Approach to GFR Estimation: Recommendations of the NKF-ASK Task Force on Reassessing the Inclusion of Race in Diagnosing Kidney Disease, JASN 2020). The CKD-EPI equation should not be used for patients with unstable renal function and has not been validated in children and those over 70. Current interpretive data was last reviewed 2021. Testing performed by: [address] [address] Blood 05/02/2024 1:11 PM PROTECTION OFFICER 05/02/2024 1:46 PM PROTECTION OFFICER us Corey Nash DO LAB BLOOD ORDERABLES Final Result [facility] [address] [facility] Department [place] [address] * Differential, auto (05/02/2024 1:11 PM PROTECTION OFFICER) Neutrophil abs 6.0 1.5 - 6.5 K/[facility]umm Comment:Testing performed by : [address] [address] Imm gran abs 0.0 0.0 - 0.1 K/cumm [place] Comment:Testing performed by : [address] [address] Lymphocyte abs 1.1 0.8 - 3.3 K/cumm [place] Comment:Testing performed by : [address] [address] Monocyte abs 0.2 0.2 - 0.8 K/cumm [place] Comment:Testing performed by : [address] [address] Eosinophil abs 0.0 0.0 - 0.5 K/cumm [place] Comment:Testing performed by : [address] [address] Basophil abs 0.1 0.0 - 0.1 K/cumm [place] Comment:Testing performed by : [address] [place]., [address] Neutrophil pct 81.3 % [facility] Comment: Interpretive Data Percent cell count reference ranges are not reported, since discordance with absolute values may lead to misinterpretation of CBC data. Current Interpretive Data was last revised on 2017. Testing performed by: [address] [address] Imm gran pct 0.3 % [facility] Comment: Interpretive Data Percent cell count reference ranges are not reported, since discordance with absolute values may lead to misinterpretation of CBC data. Current Interpretive Data was last revised on 2017. Testing performed by: [address] [address] Lymphocyte pct 14.7 % [facility] Comment: Interpretive Data Percent cell count reference ranges are not reported, since discordance with absolute values may lead to misinterpretation of CBC data. Current Interpretive Data was last revised on 2017. Testing performed by: [address] [address] Monocyte pct 2.7 % [facility] Comment: Interpretive Data Percent cell count reference ranges are not reported, since discordance with absolute values may lead to misinterpretation of CBC data. Current Interpretive Data was last revised on 2017. Testing performed by: [address] [address] Eosinophil pct 0.3 % [facility] Comment: Interpretive Data Percent cell count reference ranges are not reported, since discordance with absolute values may lead to misinterpretation of CBC data. Current Interpretive Data was last revised on 2017. Testing performed by: [address] [address] Basophil pct 0.7 % [facility] Comment: Interpretive Data Percent cell count reference ranges are not reported, since discordance with absolute values may lead to misinterpretation of CBC data. Current Interpretive Data was last revised on 2017. Testing performed by: [address] [address] Blood 05/02/2024 1:11 PM PROTECTION OFFICER 05/02/2024 1:46 PM PROTECTION OFFICER us Corey Nash DO LAB BLOOD ORDERABLES Final Result [facility] [address] [facility] Department [place] [address] * (ABNORMAL) Urinalysis reflex to microscopic and culture Urine (05/02/2024 1:11 PM PROTECTION OFFICER) Color, ur Yellow Yellow Comment:Testing performed by : [address] [address] Clarity, ur Clear Clear [place] Comment:Testing performed by : [address] [address] Specific gravity, ur 1.027 1.003 - 1.030 [place] Comment:Testing performed by : [address] [address] pH, urine 5.0 [place] Comment: Interpretive Data U rine pH is affected by diet, medications, systemic acid-base disturbances, and renal tubular function. pH may affect urinary stone formation. For example, urine pH below 6.0 may help reduce the tendency for calcium phosphate stones and pH greater than 6.0 may reduce the tendency for uric acid stone formation. Source: [facility] [employer] Current Interpretive Data was last revised on 2017 Testing performed by: [address] [address] Protein, ur ql Negative Negative [place] Comment:Testing performed by : [address] [address] Glucose, ur ql Negative Negative [place] Comment:Testing performed by : [address] [address] Ketones, ur 2+(A) Negative [place] Comment:Testing performed by : [address] [address] Bilirubin, ur Negative Negative [place] Comment:Testing performed by : [address] [address] Blood, ur Negative Negative [place] Comment:Testing performed by : [address] [address] Urobilinogen, ur <2.0 <2.0 mg/dL [place] Comment:Testing performed by : [address] [address] Nitrite, ur Negative Negative [place] Comment:Testing performed by : [address] [address] Leukocyte esterase, ur Negative Negative [place] Comment:Testing performed by : [address] [address] UA reflex comment Reflex conditions for microscopic UA and culture not met. [place] Comment:Testing performed by : [address] [address] Urine 05/02/2024 1:11 PM PROTECTION OFFICER 05/02/2024 1:46 PM PROTECTION OFFICER us Corey Nash DO LAB MICROBIOLOGY - GENERAL ORDERABLES Final Result [facility] Department [place] [address] * CBC with auto differential (05/02/2024 1:11 PM PROTECTION OFFICER) WBC 7.4 3.8 - 9.9 K/cumm Comment:Testing performed by : [address] [address] Hgb 13.9 11.9 - 15.5 g/dL [place] Comment:Testing performed by : [address] [address] Hct 41.0 35.6 - 45.5 % [place] Comment:Testing performed by : [address] [address] Plt 265 150 - 400 K/cumm [place] Comment:Testing performed by : [address] [address] MPV 10.2 9.1 - 12.3 fL [place] Comment:Testing performed by : [address] [address] RBC 4.42 3.90 - 5.20 M/cumm [place] Comment:Testing performed by : [address] [address] MCV 92.8 81.3 - 96.4 fL [place] Comment:Testing performed by : [address] [address] MCH 31.4 27.1 - 33.3 pg [place] Comment:Testing performed by : [address] [address] MCHC 33.9 32.3 - 35.7 g/dL [place] Comment:Testing performed by : [address], [address] RDW CV 12.6 11.1 - 14.9 % [place] Comment:Testing performed by : [address], [address] RDW SD 43.5 35.7 - 48.1 fL [place] Comment:Testing performed by : [address], [address] NRBC abs 0.00 0.00 - 0.01 K/cumm [place] Comment:Testing performed by : [address], [address] Blood (Blood, Venous) 05/02/2024 1:11 PM PROTECTION OFFICER 05/02/2024 1:46 PM PROTECTION OFFICER Corey Nash DO LAB BLOOD ORDERABLES Final Result Performing Organization Address [facility] Co de Phone Number [facility] Department [place] [address] * Lipase (05/02/2024 1:11 PM PROTECTION OFFICER) Lipase 21 10 - 99 Units/L Comment:Testing performed by : [address] [address] Blood (Blood, Venous) 05/02/2024 1:11 PM PROTECTION OFFICER 05/02/2024 1:46 PM PROTECTION OFFICER Corey Nash DO LAB BLOOD ORDERABLES Final Result Performing Organization Address City/State/[facility] Co de Phone Number [place] [address] [facility] Department [place] [address] * (ABNORMAL) Comprehensive metabolic panel (05/02/2024 1:11 PM PROTECTION OFFICER) Sodium 140 135 - 145 mmol/L Comment:Testing performed by : [facility], [address] [place] [address]., [address] Potassium, pl 3.7 3.3 - 4.9 mmol/L [place] Comment:Testing performed by : [address], [place]., [address] Chloride 103 97 - 110 mmol/L [place] Comment:Testing performed by : [address] [address] CO2 26 22 - 32 mmol/L [place] Comment:Testing performed by : [address], [place]., [address] Anion gap 11 2 - 15 mmol/L [place] Comment:Testing performed by : [address] [address] BUN 19 6 - 25 mg/dL [place] Comment:Testing performed by : [address] [address] Creatinine 0.50(L) 0.60 - 1.10 mg/dL [place] Comment:Testing performed by : [address] [address] Glucose 97 70 - 199 mg/dL [place] Comment: Interpretive Data Fasting glucose >/= 126 mg/dl is diagnostic for diabetes. Fasting is defined as no caloric intake for at least 8 hours. Fasting glucose between 100 mg/dl to 125 mg/dl is diagnostic of prediabetes. In a patient with classic symptoms of hyperglycemia or hyperglycemic crisis, a random glucose >/= 200 mg/dl is diagnostic for diabetes. In the absence of unequivocal hyperglycemia, results should be confirmed by repeat testing. The classification and Diagnosis of Diabetes Diabetes Care 2021; 46: S19-S40. Current interpretive data was last revised 2022. Testing performed by: [address], [place]., [address] Calcium 9.9 8.5 - 10.3 mg/dL [place] Comment:Testing performed by : [facility], [address] [place] [address]., [address] Bilirubin, total 0.5 0.1 - 1.2 mg/dL [place] Comment:Testing performed by : [facility], [address] [place] [address]., [address] Protein, pl 7.3 6.5 - 8.5 g/dL [place] Comment:Testing performed by : [address] [address] Albumin 4.5 3.5 - 5.0 g/dL [place] Comment:Testing performed by : [address] [address] Alk phos 79 40 - 130 Units/L [place] Comment:Testing performed by : [address] [address] ALT 20 7 - 45 Units/L [place] Comment:Testing performed by : [address] [address] AST 22 10 - 45 Units/L [facility] Comment:Testing performed by : [address] [address] Blood 05/02/2024 1:11 PM PROTECTION OFFICER 05/02/2024 1:46 PM PROTECTION OFFICER Corey Nash DO LAB BLOOD ORDERABLES Final Result Performing Organization Address City/State/[facility] Co de Phone Number [facility] [address] Department of Laboratories [place], [place] [id number] * (ABNORMAL) HM MAMMOGRAPHY (12/15/2022) Mammography Abnormal us Historical Provider HEALTH MAINTENANCE Final Result * Stool DNA - Cologuard (09/08/2021) Scribed Stool DNA - Cologuard [facility] Stool 09/08/2021 Historical Provider LAB BODY FLUIDS AND STOOL S ORDERABLES Final Result [facility] * Dexa Axial Skeleton Bone Density 1 or 2 Site (03/20/2019) SCRIBED DXA T-SCORE -1.6 SCRIBED DXA Z-SCORE 0.4 SCRIBED DXA BMD 0.876 Anatomical Region Laterality Modality Body N/A Radiographic Shira ging Historical Provider IMG DXA PROCEDURES Final Result * Colonoscopy (01/23/2005) Anatomical Region Laterality Modality Other Historical Provider ENDOSCOPY PROCEDURES Karina l Result from Last 3 Months or Most Recently Relevant to Health Maintenance Insurance MEDICARE SOL[employer]IONS [facility] MEDICARE Address: [address] [address] MEDICARE [employer] [facility] MEDICARE Address: [facility] [address] [place] [address] Care Teams Cosmetic Account Coordinator Relationship Specialty Start Date End Date Mike Briceno MD [address] [place] [address] PCP - General Family Medicine 08/19/18 Mike Briceno MD [address] [place] [address] PCP - Essence Attributed PCP 05/17/18
--- OUTSIDE RECORDS SUMMARY | 2024-07-06 12:47 | XMS_ITS | Encounter Summary ---
Author Organization [facility] Address [address] [facility] [place] [address] Care Team Providers Care Lumber Loader Name Role Phone Mike Briceno MD Primary Care Provider [phone] Encounter Details Date Type Department Care Team (Late st Contact Info) Description 09/30/2022 Lab Requisition [facility] Derm[facility] Lab [address] [facility], [place] [address] rCystal Momin MD [address] [facility] 3 [place] [address] Social History Tobacco Use Types Packs/Day Years [...] on file Sexual Orientation Not on file documented as of this encounter Plan of Treatment Not on file documented as of this encounter Procedures Procedure Name Priority Date/Time Associated Diagnosis Comments DERMATOPATHOLOGY Routine 09/30/2022 8:30 AM CDT documented in this encounter Results * DERMATOPATHOLOGY (09/30/2022 8:30 AM CDT) Case Report Dermatopathology Report Case: [id number] Authorizing Provider: Crystal Momin MD Collected: 09/30/2022 08:30 AM Ordering Location: [facility] Received: 10/01/2022 06:08 AM Pathologist: Sheridan Pardo MD Specimens: A) - Skin, left sideburn B) - Skin, right protestant 4:41 PM CDT DERMATOPATHOLOGY LABORATORY Final Diagnosis Specimen A. SKIN, left sideburn: SEBORRHEIC KERATOSIS, IRRITATED; SUPERFICIAL PORTIONS ONLY (L82.0) Specimen B. 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 The specimen consists of a shave biopsy measuring 5x4x1 mm. Jar 0. Specimen B: Received is one formalin filled container labeled with the patient's name and designated right protestant. The specimen consists of a shave biopsy measuring 6x5x1 mm. Jar 0. 4:41 PM CDT DERMATOPATHOLOGY LABORATORY Microscopic Description Specimen A. SKIN, left sideburn: There is acanthosis consisting of fairly uniform squamous cells with eosinophilic cytoplasm and squamous eddies. Specimen B. SKIN, right protestant: The epidermis shows parakeratosis, full thickness disorderly maturation of keratinocytes, mitoses at different levels, and dyskeratotic cells. 4:41 PM CDT DERMATOPATHOLOGY LABORATORY Disclaimer An external and internal positive and negative controls are appropriate for the histochemical, immunohistochemical and immunofluorescence stain(s) in this case (if any), except where stated explicitly. The performance characteristics of the stain(s) cited in this report were developed and its performance characteristic determined by the Dermatopathology Laboratory at [facility], directed by Dr. Zak Pardo. These tests need not be, and therefore are not, approved by the [place] Food and Drug Administration. The tests are used for clinical purposes. Billing Codes Specimen Charges Stain Charges 26197 90185 1 1 3 4:41 PM CDT DERMATOPATHOLOGY LABORATORY Embedded Images 3 4:41 PM CDT DERMATOPATHOLOGY LABORATORY Pathology/Cytology TISSUE SPECIMEN FROM SKIN / Unknown 09/30/2022 8:30 AM CDT 10/01/2022 6:08 AM CDT Miscellaneous samples (specimen) TISSUE SPECIMEN FROM SKIN / Unknown 09/30/2022 8:30 AM CDT 10/01/2022 6:08 AM CDT Crystal Momin MD LAB - PATHOLOGY/CYT OLOGY ORDERABLES DERMATOPATHOLOGY LABORATORY [facility] - Department of Dermatology [facility] [address] [place] [address], [address] [phone] documented in this encounter Visit Diagnoses Not on filedocumented in this encounter Care Teams Lumber Loader Relationship Specialty Start Date End Date Mike Briceno MD PCP - General Family Medicine 06/27/20 documented as of this encounter
--- OUTSIDE RECORDS SUMMARY | 2024-07-06 12:47 | XMS_ITS | Referral Summary ---
Author Organization [facility] Address [address] [place] [phone] Care Team Providers Care Qa Software Tester Name Role Phone Mike Briceno MD Primary Care Provid er Mike Briceno MD Unavailable [phone] Encounters Date Type Department Care Team Description 06/27/2024 9:00 AM APPLICATION DBA Office Visit [facility] Otolaryngology [address] [place] [phone] Roula Durbin NP Vertigo (Primary Dx); Sensorineural hearing loss (SNHL) of both ears; Tinnitus of both ears 06/27/2024 8:30 AM APPLICATION DBA Procedure visit [facility] Otolaryngology [address] [place] [phone] Graciela Morelos Dizziness and giddiness (Primary Dx); Tinnitus of both ears 06/06/2024 Telephone [facility] [address] [address] Mike Briceno MD Recommendation Request 05/16/2024 7:36 AM APPLICATION DBA - 05/16/2024 11:59 PM APPLICATION DBA Hospital Encounter [facility] Vascular Lab [address] [place] [phone] Dizziness Discharge Disposition: Discharge to home or self care 05/05/2024 10:00 AM APPLICATION DBA Office Visit [facility] [address] [phone] Mike Briceno MD Dizziness (Primary Dx) 05/03/2024 [facility] Outreach [facility] Care Organization [address] [place] [address] Katt Alonso MA 05/02/[address] [facility] [address] [phone] Mike Briceno MD 05/02/2024 2:39 PM APPLICATION DBA - 05/02/2024 5:38 PM [facility] Emergency [facility] Emergency Department [address] [place] [address] Vertigo (Primary Dx) Discharge Disposition: Discharge to home or self care 05/02/2024 11:15 AM APPLICATION DBA Office Visit [facility] Care at [address] [phone] Lori Bartlett PA Dizziness (Primary Dx) 04/24/2024 8:00 AM APPLICATION DBA Office Visit [address] [phone] Miek Briceno MD Screening mammogram for breast cancer (Primary Dx); Screening for osteoporosis; Menopause from Last 3 Months Allergies No known active allergies Medications cholecalciferol [...] Excellent exercise capacity at 13 METS. Short MD with increased heart rate Vertigo 08/13/2018 Assessment [...] radiculopathy 08/28/2014 Compression fracture of cervical spine ([facility]/HCC) 08/28/2014 Fracture of cervical vertebra ([facility]/HCC) 05/16/20 14 Immunizations Immunization Administration Dates Next Due Influenza, Quadrivalent, Spl it, Intramuscular 06/07/2013 Influenza, Unspecified 04/24/2024(Deferr ed: Patient Refused),05/03/2023(Deferred: Patient Refused),02/14/2023(Deferred: Patient Refused),02/14/2022(Deferred: Patient Refused),10/16/2021(Deferred: Patient Refused),02/14/2021(Deferred: Patient Refused),02/14/2021(Deferred: Patient Refused),02/23/2020(Deferred: Patient Refused),02/15/2020(Deferred: Patient Refused) Moderna SARS-CoV-2 Monovalen t Vaccination (12+ YRS) 12/08/2021,03/24/2021,08/05/2020,07/04 Pneumococcal Conjugate PCV 13 01/16/2020 Pneumococcal Conjugate Pcv20 11/05/2021 Tdap 12/08/2015 ZOSTER Recombinant 12/14/2018,09/01/2018 Social History Tobacco Use Types Packs/Day Years [...] on file Legal Sex Female 11:20 AM APPLICATION DBA Gender Identity Not on file Sexual Orientation Not on file Last Filed Vital Signs Vital Sign Reading Time Taken Comments Blood Pressure 132/80 05/05/2024 10:04 AM APPLICATION DBA Pulse 74 05/05/2024 10:04 AM APPLICATION DBA Temperature 36.7 C (98.1 F) 05/05/2024 10:04 AM APPLICATION DBA Respiratory Rate 18 06/27/2024 9:12 AM APPLICATION DBA Oxygen Saturation 99% 05/05/2024 10:04 AM APPLICATION DBA Inhaled Oxygen Concentration - - Weight 57.2 kg (126 lb) 06/27/2024 9:12 AM APPLICATION DBA Height 160 cm (5' 3 ) 06/27/2024 9:12 AM APPLICATION DBA Body Mass Index 22.32 06/27/2024 9:12 AM APPLICATION DBA Plan of Treatment Not on file Procedures Procedure Name Priority Date/Time Associated Diagnosis Comments US CAROTIDS DUPLEX BILATERAL Schedule Routine, Read Routine (OP Routine) 05/16/2024 8:33 AM APPLICATION DBA Dizziness TROPONIN T HIGH-SENSITIVITY 2-HOUR Timed 05/02/2024 3:10 PM APPLICATION DBA ECG 12-LEAD STAT 05/02/2024 3:03 PM APPLICATION DBA TROPONIN T HIGH-SENSITIVITY SERIES (BASELINE, 2HR, 4HR, 6HR) STAT 05/02/2024 1:11 PM APPLICATION DBA EGFR STAT 05/02/2024 1:11 PM APPLICATION DBA DIFFERENTIAL AUTO STAT 05/02/2024 1:1 1 PM APPLICATION DBA LIPASE STAT 05/02/2024 1:11 PM APPLICATION DBA COMPREHENSIVE METABOLIC PANEL STAT 05/02/2024 1:11 PM APPLICATION DBA CBC WITH AUTO DIFFERENTIAL STAT 05/02/2024 1:11 PM APPLICATION DBA URINALYSIS AND REFLEX TO MICROSCOPIC AND CULTURE STAT 05/02/2024 1:11 PM APPLICATION DBA HM MAMMOGRAPHY Routine 12/15/2022 STOOL DNA COLOGUARD Routine 09/08/2021 DEXA AXIAL SKELETON BONE DENSITY 1 OR MORE SITES Schedule Routine, Read Routine (OP Routine) 03/20/2019 COLONOSCOPY Routine 01/23/2005 from Last 3 Months or Most Recently Relevant to Health Maintenance Results * Vl US Carotids (05/16/2024 8:33 AM APPLICATION DBA) Anatomical Region Laterality Modality Vascular Bilateral Ultrasound 05/16/2024 Narrative 05/19/2024 7:16 AM APPLICATION DBA Smart [employer] Backpack Job ID: [id number] Smart GPS Backpack Document ID: [id number] Dictated date/time: [id number] BILATERAL CAROTID DUPLEX REASON FOR EXAM Dizziness. [...] internal carotid arteries. Job ID/Internal Job ID: [id number] Mike Briceno MD IMG US PROCEDURES Fi nal Result * Troponin T high-sensitivity 2-hour (05/02/2024 3:10 PM APPLICATION DBA) [facility] Trop T hs 7 <=14 ng/L Comment: Interpretive Data For further hscTnT resources including the diagnostic algorithm and an aid in interpretation, copy and paste this link: https://nrl.testcatalog.org/show/hsTrop Current Interpretive Data last revised 2020. Testing performed by: [address] [address] Trop T hs delta -1 ng/L [facility] Comment:Testing performed by : [facility], [address] [place] [address]., [address] Trop T hs interp Insignificant [place] Comment:Testing performed by : [address] [address] Blood 05/02/2024 3:10 PM APPLICATION DBA 05/02/2024 3:13 PM APPLICATION DBA Corey Nash DO LAB BLOOD ORDERABLES Final Result [facility] [address] [facility] Department [place] [address] * ECG 12 lead (05/02/2024 3:03 PM APPLICATION DBA) [facility] Ventricular Rate EKG/Min 77 BPM [facility] Atrial Rate 77 BPM [facility] MD-Interval (MSEC) 118 ms [facility] QRS-Interval (MSEC) 90 ms [facility] QT-Interval (MSEC) 364 ms [facility] QTc 411 ms [facility] P [place] 66 degrees [facility] R [place] 56 degrees [facility] T [place] 18 degrees [facility] Diagnosis Normal sinus rhythm ST-changes When compared with ECG of 31-AUG-2007 07:57, ST-changes are now Confirmed by SULTAN COX M.D. ([id number]) on 05/02/2024 4:55:30 PM [facility] 05/02/2024 3:03 PM APPLICATION DBA 05/02/2024 4:55 PM APPLICATION DBA us Angelia PICKETT ECG ORDERABLES Final Result [facility] * Troponin T high-sensitivity series (baseline, 2hr, 4hr, 6hr) (05/02/2024 1:11 PM APPLICATION DBA) Trop T hs 8 <=14 ng/L Comment: Interpretive Data For further hscTnT resources including the diagnostic algorithm and an aid in interpretation, copy and paste this link: https://nrl.testcatalog.org/show/hsTrop Current Interpretive Data last revised 2020. Testing performed by: [facility], [address] [place] [address]., [address] Blood 05/02/2024 1:11 PM APPLICATION DBA 05/02/2024 1:46 PM APPLICATION DBA us Corey Nash DO LAB BLOOD ORDERABLES Edited Result - Final [facility] [address] [facility] Department [place] [address] * eGFR (05/02/2024 1:11 PM APPLICATION DBA) eGFR >90 >=60 mL/min/1. 73 m2 Comment: [...] was last reviewed 2021. Testing performed by: [address] [address] Blood 05/02/2024 1:11 PM APPLICATION DBA 05/02/2024 1:46 PM APPLICATION DBA us Corey Nash DO LAB BLOOD ORDERABLES Final Result [facility] [address] [facility] Department [place] [address] * Differential, auto (05/02/2024 1:11 PM APPLICATION DBA) Neutrophil abs 6.0 1.5 - 6.5 K/cumm Comment:Testing performed by : [address] [address] Imm gran abs 0.0 0.0 - 0.1 K/cumm [facility] Comment:Testing performed by : [address] [address] Lymphocyte abs 1.1 0.8 - 3.3 K/cumm [facility] Comment:Testing performed by : [address] [address] Monocyte abs 0.2 0.2 - 0.8 K/cumm [facility] Comment:Testing performed by : [address] [address] Eosinophil abs 0.0 0.0 - 0.5 K/cumm [place] Comment:Testing performed by : [address] [address] Basophil abs 0.1 0.0 - 0.1 K/cumm [facility] Comment:Testing performed by : [address] [address] Neutrophil pct 81.3 % [facility] Comment: Interpretive Data Percent cell count reference ranges are not reported, since discordance with absolute values may lead to misinterpretation of CBC data. Current Interpretive Data was last revised on 2017. Testing performed by: [address] [address] Imm gran pct 0.3 % [facility] Comment: Interpretive Data Percent cell count reference ranges are not reported, since discordance with absolute values may lead to misinterpretation of CBC data. Current Interpretive Data was last revised on 2017. Testing performed by: [address] [address] Lymphocyte pct 14.7 % [facility] Comment: Interpretive Data Percent cell count reference ranges are not reported, since discordance with absolute values may lead to misinterpretation of CBC data. Current Interpretive Data was last revised on 2017. Testing performed by: [address] [address] Monocyte pct 2.7 % [facility] Comment: Interpretive Data Percent cell count reference ranges are not reported, since discordance with absolute values may lead to misinterpretation of CBC data. Current Interpretive Data was last revised on 2017. Testing performed by: [address] [address] Eosinophil pct 0.3 % [facility] Comment: Interpretive Data Percent cell count reference ranges are not reported, since discordance with absolute values may lead to misinterpretation of CBC data. Current Interpretive Data was last revised on 2017. Testing performed by: [address] [address] Basophil pct 0.7 % [facility] Comment: Interpretive Data Percent cell count reference ranges are not reported, since discordance with absolute values may lead to misinterpretation of CBC data. Current Interpretive Data was last revised on 2017. Testing performed by: [address] [address] Blood 05/02/2024 1:11 PM APPLICATION DBA 05/02/2024 1:46 PM APPLICATION DBA Corey Nash DO LAB BLOOD ORDERABLES Final Result [facility] [address] [facility] Department [place] [address] * (ABNORMAL) Urinalysis reflex to microscopic and culture Urine (05/02/2024 1:11 PM APPLICATION DBA) Color, ur Yellow Yellow Comment:Testing performed by : [address] [address] Clarity, ur Clear Clear [facility] Comment:Testing performed by : [address] [address] Specific gravity, ur 1.027 1.003 - 1.030 [facility] Comment:Testing performed by : [address] [address] pH, urine 5.0 [facility] Comment: Interpretive Data U rine pH is affected by diet, medications, systemic acid-base disturbances, and renal tubular function. pH may affect urinary stone formation. For example, urine pH below 6.0 may help reduce the tendency for calcium phosphate stones and pH greater than 6.0 may reduce the tendency for uric acid stone formation. Source: [facility] [employer] Current Interpretive Data was last revised on 2017 Testing performed by: [address] [address] Protein, ur ql Negative Negative [facility] Comment:Testing performed by : [address] [address] Glucose, ur ql Negative Negative [facility] Comment:Testing performed by : [address] [address] Ketones, ur 2+(A) Negative [place] Comment:Testing performed by : [address] [address] Bilirubin, ur Negative Negative [place] Comment:Testing performed by : [address] [address] Blood, ur Negative Negative [place] Comment:Testing performed by : [address] [address] Urobilinogen, ur <2.0 <2.0 mg/dL [facility] [place] Comment:Testing performed by : [address] [address] Nitrite, ur Negative Negative [place] Comment:Testing performed by : [address], [place]., [address] Leukocyte esterase, ur Negative Negative [facility] [place] Comment:Testing performed by : [address] [address] UA reflex comment Reflex conditions for microscopic UA and culture not met. [facility] [place] Comment:Testing performed by : [address] [address] Urine 05/02/2024 1:11 PM APPLICATION DBA 05/02/2024 1:46 PM APPLICATION DBA Corey Nash DO LAB MICROBIOLOGY - GENERAL ORDERABLES Final Result [facility] Department [place] [address] * CBC with auto differential (05/02/2024 1:11 PM APPLICATION DBA) WBC 7.4 3.8 - 9.9 K/cumm Comment:Testing performed by : [address] [address] Hgb 13.9 11.9 - 15.5 g/dL [place] Comment:Testing performed by : [address] [address] Hct 41.0 35.6 - 45.5 % [facility] [place] Comment:Testing performed by : [address] [address] Plt 265 150 - 400 K/cumm [place] Comment:Testing performed by : [address] [address] MPV 10.2 9.1 - 12.3 fL [place] Comment:Testing performed by : [address] [address] RBC 4.42 3.90 - 5.20 M/cumm [place] Comment:Testing performed by : [address] [address] MCV 92.8 81.3 - 96.4 fL [place] Comment:Testing performed by : [address] [address] MCH 31.4 27.1 - 33.3 pg [place] Comment:Testing performed by : [address] [address] MCHC 33.9 32.3 - 35.7 g/dL [place] Comment:Testing performed by : [address] [address] RDW CV 12.6 11.1 - 14.9 % [facility] Comment:Testing performed by : [address] [address] RDW SD 43.5 35.7 - 48.1 fL [place] Comment:Testing performed by : [address] [address] NRBC abs 0.00 0.00 - 0.01 K/cumm [place] Comment:Testing performed by : [address] [address] Blood (Blood, Venous) 05/02/2024 1:11 PM APPLICATION DBA 05/02/2024 1:46 PM APPLICATION DBA Corey Nash DO LAB BLOOD ORDERABLES Final Result [facility] [address] [facility] Department [place] [address] * Lipase (05/02/2024 1:11 PM APPLICATION DBA) Lipase 21 10 - 99 Units/L Comment:Testing performed by : [address] [address] Blood (Blood, Venous) 05/02/2024 1:11 PM APPLICATION DBA 05/02/2024 1:46 PM APPLICATION DBA us Corey Nash DO LAB BLOOD ORDERABLES Final Result [facility] [address] [facility] Department [place] [address] * (ABNORMAL) Comprehensive metabolic panel (05/02/2024 1:11 PM APPLICATION DBA) Sodium 140 135 - 145 mmol/L Comment:Testing performed by : [address] [address] Potassium, pl 3.7 3.3 - 4.9 mmol/L [place] Comment:Testing performed by : [address] [address] Chloride 103 97 - 110 mmol/L [place] Comment:Testing performed by : [address] [address] CO2 26 22 - 32 mmol/L [place] Comment:Testing performed by : [address] [address] Anion gap 11 2 - 15 mmol/L [place] Comment:Testing performed by : [address] [address] BUN 19 6 - 25 mg/dL [place] Comment:Testing performed by : [address] [address] Creatinine 0.50(L) 0.60 - 1.10 mg/dL [place] Comment:Testing performed by : [address] [address] Glucose 97 70 - 199 mg/dL [facility] [...] classification and Diagnosis of Diabetes Diabetes Care 202; 46: S19-S40. Current interpretive data was last revised 2022. Testing performed by: [facility], [address] [place] [address]., [address] Calcium 9.9 8.5 - 10.3 mg/dL [place] Comment:Testing performed by : [address] [address] Bilirubin, total 0.5 0.1 - 1.2 mg/dL [place] Comment:Testing performed by : [address] [address] Protein, pl 7.3 6.5 - 8.5 g/dL [place] Comment:Testing performed by : [address], [place]., [address] Albumin 4.5 3.5 - 5.0 g/dL [facility] Comment:Testing performed by : [address] [address] Alk phos 79 40 - 130 Units/L [place] Comment:Testing performed by : [address] [address] ALT 20 7 - 45 Units/L [place] Comment:Testing performed by : [address] [address] AST 22 10 - 45 Units/L [facility] Comment:Testing performed by : [address] [address] Blood 05/02/2024 1:11 PM APPLICATION DBA 05/02/2024 1:46 PM APPLICATION DBA Corey Nash DO LAB BLOOD ORDERABLES Final Result [facility] [address] [facility] Department [place] [address] * (ABNORMAL) HM MAMMOGRAPHY (12/15/2022) Mammography Abnormal Historical Provider HEALTH MAINTENANCE Final Result * Stool DNA - Cologuard (09/08/2021) Scribed Stool DNA - Cologuard Negative [facility] Stool 09/08/2021 Historical Provider LAB BODY FLUIDS AND STOOL S ORDERABLES Final Result [facility] * Dexa Axial Skeleton Bone Density [...] Relevant to Health Maintenance Insurance MED[employer] Care Teams Qa Software Tester Relationship Specialty Start Date End Date Mike Briceno MD [address] [place] [address] PCP - General Family Medicine 08/19/18 Mike Briceno MD [address] [place] [address] PCP - Essence Attributed PCP 05/17/18
--- OUTSIDE RECORDS SUMMARY | 2024-07-06 12:47 | XMS_ITS | Encounter Summary ---
Author Organization [facility] Address [address] [place] [id number] Care Team Providers Care Loan Consultant Name Role Phone Mike Briceno MD Primary Care Provid er Mike Briceno MD Unavailable [phone]- [phone] Reason for Visit * Reason Onset Date Comments Recommendation Request 06/06/2024 Encounter Details Date Type Department Care Team (Late st Contact Info) Description 06/06/2024 Telephone [facility] Family Medicine [address] [phone] Mike Briceno MD [address] [address] Recommendation Request Social History Tobacco Use Types Packs/Day Years [...] on file Legal Sex Female 11:20 AM KIER HAND Gender Identity Not on file Sexual Orientation Not on file documented as of this encounter Miscellaneous Notes * Telephone Encounter - Melina Jauregui - 06/06/2024 4:22 PM CST See message HAND * Telephone Encounter - Erika Pemberton - 06/06/2024 2:45 PM CST Recommendation Request Note: This request is for a specialty recommendation, not an insurance referral. Specialty: ENT Why does the patient want to go to this specialist? Ongoing dizziness, per 05/05/24 visit note fromDr. Briceno, ENT is next step if carotid US is normal. Clear carotid arteries per result message from Dr. Briceno on 05/19/24. Additional Comments/Concerns: Patient is unsure whether or not an insurance referral will be needed. Does message need to be routed? Yes-Action Needed HAND documented in this encounter Plan of Treatment Not on file documented as of this encounter Visit Diagnoses Not on filedocumented in this encounter Care Teams Loan Consultant Relationship Specialty Start Date End Date Mike Briceno MD [address] [place] [address] PCP - General Family Medicine 08/19/18 Mike Briceno MD [address] [place] [address] PCP - Essence Attributed PCP 05/17/18 documented as of this encounter
--- OUTSIDE RECORDS SUMMARY | 2024-07-06 12:47 | XMS_ITS | Referral Summary ---
Author Organization [facility] Address [address] [place] [address] Care Team Providers Care Grocery Checker Name Role Phone Mike Briceno MD Primary Care Provider Source Comments [facility],non-owned Affiliates and Associated Physician Practices is amultiple site organization consisting of ambulatory clinics and hospital sitesin [place], [place], [place] and [place]. This disclosure is being madepursuant to the Care Everywhere program and may not contain all information available regarding this patient. Last updated 18.[facility] Allergies No known active allergies Medications * [...] Excellent exercise capacity at 13 METS. Short IA with increased heart rate Dizziness 08/13/2018 Overview [...] Zoster Hzv Vacc Recombinant Inj Im 12/14/2018, Social History Tobacco Use Types Packs/Day Years [...] Comments Blood Pressure 122/73 06/27/2020 8:05 AM SPRING CRATER Pulse 75 06/27/2020 8:05 AM SPRING CRATER Temperature 36.6 C (97.9 F) 06/27/2020 8:05 AM SPRING CRATER Respiratory Rate - - Oxygen Saturation - - Inhaled Oxygen Concentration - - Weight 57.6 kg (127 lb) 06/27/2020 8:05 AM SPRING CRATER Height 160 cm (5' 3 ) 06/27/2020 8:05 AM SPRING CRATER Body Mass Index 22.5 06/27/2020 8:05 AM SPRING CRATER Plan of Treatment Not on file Care Teams Grocery Checker Relationship Specialty Start Date End Date Mike Briceno MD PCP - General Family Medicine 06/27/20
--- OUTSIDE RECORDS SUMMARY | 2024-07-06 12:47 | XMS_ITS | Encounter Summary ---
Author Organization [facility] Address [address] [place] [address] Care Team Providers Care Supervisor Orchard Name Role Phone Gavin Sanchez MD Primary Care Provider [phone]- [phone] Mike Briceno MD Primary Care Provid er Mike Briceno MD Unavailable + [phone] Encounter Details Date Type Department Care Team (Late st Contact Info) Description 05/20/2016 Orders Only [facility] ProviderRamiro MD [address] [place] [id number] Social History Tobacco Use Types Packs/Day Years Used Date Smoking Tobacco: Never Assessed Comments Unknown Sex and Gender Information Value Date Recorded Sex Assigned at Not on file 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
--- OUTSIDE RECORDS SUMMARY | 2024-07-06 12:47 | XMS_ITS | Patient Health Record ---
Author Organization [facility] Address [address] [place] [id number] Support Name Relationship Address Phone Shanda Martell Guarantor Unknown [phone] Reason For Referral No Information Plan Of Treatment No Information Insurance Providers Payer Name Payer Address Payer Phone Subscriber Number Group Number Insured Name Patient Relationship to Insured Coverage Start Date Coverage End Date [facility] [address] [place] [address] [id number] Shanda Martell Self - patient is the insured
== END 2024-07-06 12:41 | disposition home or self-care (01) ==
LOC: CHSIMG 12:42
PROVIDERS: PCP Family Medicine; Visit Provider Nurse Practitioner Women's Health
DX: Z12.31 Encounter for screening mammogram for malignant neoplasm of breast (principal); Z78.0 Asymptomatic menopausal state; M85.88 Other specified disorders of bone density and structure, other site
CPT/HCPCS: 77063; 77067; 77080